=== PATIENT | male | born 1980 | race American Indian/Alaskan Native ===

== ENCOUNTER 2016-09-02 22:38 | Emergency (ER) | payer OTHER ==
[2016-09-02 22:47] VITALS: BP 142/90
--- NOTE | 2016-09-03 01:44 | Emergency Department Report ---
HPI - General Chief Complaint: Medical Clearance Time Seen by Provider: 09/03/16 01:02 - HPI HPI: 34-year-old male presents today complaining of constipation. Patient states that he was seen at [facility] yesterday. An x-ray and labs were performed and he was diagnosed with constipation. Patient was given generic of MiraLAX, dicyclomine, Zofran and docusate sodium. Patient states that the medication is not working and it probably because it generic. Patient with like something else besides MiraLAX. Denies any medical complaints at this time. Denies fever, chills, nausea, vomiting, chest pain, shortness of breath, abdominal pain. Patient states they gave him a GI cocktail yesterday which caused him to have 1 bowel movement and he hasn't had any since. ED Past Medical Hx - Past Medical History Previous Medical History?: No - Surgical History Past Surgical History?: No - Social History Smoking Status: Never Smoker Substance Use Type: None - Medications Home Medications: Home Medications Medication Instructions Recorded Confirmed Last Taken Type Lactulose 10 gm PO QDAY #100 ml 09/03/16 Unknown Rx ED Review of Systems ROS: Stated complaint: CONSTIPATION Other details as noted in HPI Constitutional: denies: chills, fever, malaise Eyes: denies: eye pain ENT: denies: ear pain, throat pain, congestion Respiratory: denies: cough, shortness of breath, wheezing Cardiovascular: denies: chest pain, palpitations Endocrine: no symptoms reported Gastrointestinal: constipation. denies: abdominal pain, nausea, vomiting Neurological: denies: headache, weakness Physical Exam - Physical Exam Vital Signs: Vital Signs 09/02/16 22:43 Temperature 98.7 F Pulse Rate 75 Respiratory 18 Rate Blood Pressure 142/90 O2 Sat by Pulse 99 Oximetry Physical Exam: GENERAL: The patient is well-developed and well-nourished. Patient is in NAD. HEAD: Normocephalic. Atraumatic. CHEST/LUNGS: Clear to auscultation throughout. HEART/CARDIOVASCULAR: Regular rate and rhythm. No murmurs, rubs or gallops. ABDOMEN: Abdomen is soft, nontender. Bowel sounds normoactive. No guarding or rebound tenderness. EXTREMITIES: Peripheral pulses intact. Capillary refill less than 2 seconds. NEURO: Alert and oriented x 3. Normal gait. ED Course Vital Signs 09/02/16 22:43 Temperature 98.7 F Pulse Rate 75 Respiratory 18 Rate Blood Pressure 142/90 O2 Sat by Pulse 99 Oximetry ED Medical Decision Making - Lab Data Vital Signs 09/02/16 22:43 Temperature 98.7 F Pulse Rate 75 Respiratory 18 Rate Blood Pressure 142/90 O2 Sat by Pulse 99 Oximetry - Medical Decision Making 35-year-old male presents today with constipation. Patient is requesting another medication besides MiraLAX. Patient is asked to discontinue the use of MiraLAX. Patient is in no acute distress at this time. He will be discharged home and is encouraged to follow up with a primary care provider. He will be sent home on lactulose and is recommended to continue docusate sodium. He is encouraged to return to the emergency room for any worsening symptoms. Critical care attestation.: If time is entered above; I have spent that time in minutes in the direct care of this critically ill patient, excluding procedure time. ED Disposition Clinical Impression: Constipation Qualifiers: Constipation type: unspecified constipation type Qualified Code(s): K59.00 - Constipation, unspecified Disposition: DISCHARGED TO HOME OR SELFCARE Is pt being admited?: No Does the pt Need Aspirin: No Condition: Stable Instructions: Constipation (ED), High Fiber Diet (ED) Additional Instructions: Follow-up with primary care provider. Return to the emergency department if symptoms worsen. Prescriptions: Lactulose 10 gm PO QDAY #100 ml Referrals: PRIMARY CAREMD [Primary Care Provider] - 3-5 Days WYATT ROTH MD [Staff Physician] - 3-5 Days Forms: Work/School Release Form(ED) Time of Disposition: 01:42
== END 2016-09-03 01:49 | disposition home or self-care (01) ==
LOC: ED 22:38
DX: K59.00 Constipation, unspecified (principal)
CPT/HCPCS: 99282